=== PATIENT | male | born 1970 | race Caucasian/White ===

== ENCOUNTER → 2017-02-10 | Outpatient (REF) | payer OTHER ==
[2017-02-10 14:02] LABS: ALBUMIN 4.4 GM/DL (3.2-5.2); ALBUMIN/GLOBULIN RATIO 1.57 (1.00-1.93); ALKALINE PHOSPHATASE 116 U/L (45-117); ALT/SGPT 31 U/L (12-78); ANION GAP 7 MEQ/L (8-16); AST/SGOT 29 U/L (7-37); BILIRUBIN,TOTAL 0.5 MG/DL (0.2-1.0); BLOOD UREA NITROGEN 22 MG/DL (7-18); CALCIUM LEVEL 9.3 MG/DL (8.5-10.1); CARBON DIOXIDE LEVEL 29 MEQ/L (21-32); CHLORIDE LEVEL 107 MEQ/L (98-107); CREATININE FOR GFR 1.08 MG/DL (0.70-1.30); GLOMERULAR FILTRATION RATE > 60.0 (>60); GLUCOSE, FASTING 83 MG/DL (70-105); POTASSIUM SERUM 3.8 MEQ/L (3.5-5.1); SODIUM LEVEL 143 MEQ/L (136-145); TOTAL PROTEIN 7.2 GM/DL (6.4-8.2)
[2017-02-10 14:03] LABS: TOTAL 25(OH) VITAMIN D 85.7 NG/ML (30.0-100.0)
[2017-02-15 00:07] LABS: % CD8 Pos Lymph 76.9 % (12.0-35.5); %CD4 Pos Lymphs 9.6 % (30.8-58.5); ABS Eosinophils 0.1 x10E3/uL (0.0-0.4); ABS Lymphs 2.4 x10E3/uL (0.7-3.1); ABS Monocytes 0.8 x10E3/uL (0.1-0.9); ABS Neutophils 4.2 x10E3/uL (1.4-7.0); Abs CD4 Helper 230 /uL (359-1519); Abs CD8 Suppres 1846 /uL (109-897); CD4/CD8 Ratio 0.12 (0.92-3.72); Eosinophils 2 % (Not Estab.); HCT 43.6 % (37.5-51.0); HGB 15.6 g/dL (13.0-17.7); HIV-1 RNA PCR QUANT 2 LC550285 40 copies/mL (.); HIV-1 RNA PCR QUANT 3 LC550285 1.602 (.); Immature Grans 0 % (Not Estab.); Lymphocytes 31 % (Not Estab.); MCH 30.1 pg (26.6-33.0); MCHC 35.8 g/dL (31.5-35.7); MCV 84 fL (79-97); Monocytes 11 % (Not Estab.); Neutrophils 55 % (Not Estab.); Platelets 213 x10E3/uL (150-379); RBC 5.18 x10E6/uL (4.14-5.80); RDW 12.7 % (12.3-15.4); RPR Reactive (Non Reactive); TREPONEMA PALLIDUM ANTIBODIES Positive (Negative); WBC 7.5 x10E3/uL (3.4-10.8)
== END ==
LOC: M SFHCPLAZ 11:04
DX: B20 Human immunodeficiency virus [HIV] disease (principal); A51.49 Other secondary syphilitic conditions; E55.9 Vitamin D deficiency, unspecified

== ENCOUNTER → 2023-02-28 | Outpatient (CLI) | payer MEDICAID, OTHER ==
[2023-02-28 14:43] LABS: ALBUMIN 4.2 G/DL (3.2-5.2); ALKALINE PHOSPHATASE 71 U/L (46-116); ALT/SGPT 48 U/L (7.0-40); AST/SGOT 82 U/L (<34); BILIRUBIN,TOTAL 0.6 MG/DL (0.3-1.2); BLOOD UREA NITROGEN 15 MG/DL (9-23); CALCIUM LEVEL 9.6 MG/DL (8.5-10.1); CARBON DIOXIDE LEVEL 29 MMOL/L (20-31); CHLORIDE LEVEL 106 MMOL/L (98-107); CREATININE FOR GFR 1.05 MG/DL (0.70-1.30); GLOMERULAR FILTRATION RATE > 60.0 (>56); GLUCOSE, FASTING 105 MG/DL (60-100); POTASSIUM SERUM 4.5 MMOL/L (3.5-5.1); SODIUM LEVEL 139 MMOL/L (136-145); TOTAL PROTEIN 7.4 G/DL (5.7-8.2)
[2023-02-28 14:45] LABS: HEPATITIS B SURFACE ANTIBODY POSITIVE (POSITIVE); TOTAL 25(OH) VITAMIN D 22.2 NG/ML (20.0-100.0)
[2023-02-28 15:17] LABS: HEPATITIS C VIRUS ABY INDEX 0.02 INDEX (<0.8)
[2023-03-02 03:11] LABS: % CD8 Pos Lymph 75.5 % (12.0-35.5); %CD4 Pos Lymphs 11.6 % (30.8-58.5); ABS Eosinophils 0.1 x10E3/uL (0.0-0.4); ABS Lymphs 2.3 x10E3/uL (0.7-3.1); ABS Monocytes 0.7 x10E3/uL (0.1-0.9); ABS Neutophils 3.9 x10E3/uL (1.4-7.0); Abs CD4 Helper 267 /uL (359-1519); Abs CD8 Suppres 1737 /uL (109-897); CD4/CD8 Ratio 0.15 (0.92-3.72); Eosinophils 1 % (Not Estab.); HCT 46.7 % (37.5-51.0); HEPATITIS B CORE ANTIBODY IGG Negative (Negative); HGB 16.3 g/dL (13.0-17.7); HIV-1 RNA PCR QUANT 2 LC550285 740 copies/mL (.); HIV-1 RNA PCR QUANT 3 LC550285 2.869 (.); HSV TYPE II IgG SPECIFIC >23.60 index (0.00-0.90); Immature Grans 0 % (Not Estab.); Lymphocytes 33 % (Not Estab.); MCH 29.8 pg (26.6-33.0); MCHC 34.9 g/dL (31.5-35.7); MCV 85 fL (79-97); Monocytes 9 % (Not Estab.); Neutrophils 56 % (Not Estab.); Platelets 263 x10E3/uL (150-450); RBC 5.47 x10E6/uL (4.14-5.80); RDW 11.8 % (11.6-15.4); WBC 7.1 x10E3/uL (3.4-10.8)
== END ==
LOC: M PLALAB 09:00
PROVIDERS: ATTEND Internal Medicine Infectious Disease
DX: B20 Human immunodeficiency virus [HIV] disease (principal); E55.9 Vitamin D deficiency, unspecified; L02.32 Furuncle of buttock; A51.49 Other secondary syphilitic conditions

== ENCOUNTER → 2023-07-25 | Outpatient (CLI) | payer MEDICAID, OTHER ==
[2023-07-25 11:32] LABS: ALBUMIN 3.9 G/DL (3.2-5.2); ALKALINE PHOSPHATASE 48 U/L (46-116); ALT/SGPT 34 U/L (7.0-40); AST/SGOT 41 U/L (<34); BILIRUBIN,TOTAL 0.6 MG/DL (0.3-1.2); BLOOD UREA NITROGEN 11 MG/DL (9-23); CALCIUM LEVEL 9.1 MG/DL (8.5-10.1); CARBON DIOXIDE LEVEL 31 MMOL/L (20-31); CHLORIDE LEVEL 106 MMOL/L (98-107); CREATININE FOR GFR 1.03 MG/DL (0.70-1.30); GLOMERULAR FILTRATION RATE > 60.0 (>56); GLUCOSE, FASTING 86 MG/DL (60-100); POTASSIUM SERUM 4.8 MMOL/L (3.5-5.1); SODIUM LEVEL 139 MMOL/L (136-145); TOTAL PROTEIN 6.9 G/DL (5.7-8.2)
[2023-07-25 12:27] LABS: GC DNA AMPLIFICATION NEGATIVE (NEGATIVE)
[2023-07-25 12:28] LABS: GC DNA AMPLIFICATION NEGATIVE (NEGATIVE)
[2023-07-26 09:16] LABS: RPR NON-REACTIVE (NON-REACTIVE)
[2023-07-26 13:09] LABS: % CD4+ LYMPHS 13.8 % (30.8-58.5); ABSOLUTE CD4 HELPER 235 /uL (359-1519); BASOPHILS 1 % (Not Estab.); BASOPHILS ABSOLUTE 0.1 x10E3/uL (0.0-0.2); EOSINOPHILS 3 % (Not Estab.); EOSINOPHILS ABSOLUTE 0.2 x10E3/uL (0.0-0.4); HCT 49.1 % (37.5-51.0); HGB 15.9 g/dL (13.0-17.7); LYMPHOCYTES 25 % (Not Estab.); LYMPHOCYTES ABSOLUTE 1.7 x10E3/uL (0.7-3.1); MCH 27.7 pg (26.6-33.0); MCHC 32.4 g/dL (31.5-35.7); MCV 86 fL (79-97); MONOCYTES 9 % (Not Estab.); MONOCYTES ABSOLUTE 0.6 x10E3/uL (0.1-0.9); NEUTROPHILS 62 % (Not Estab.); NEUTROPHILS ABSOLUTE 4.3 x10E3/uL (1.4-7.0); PLT 216 x10E3/uL (150-450); RBC 5.73 x10E6/uL (4.14-5.80); RDW 13.3 % (11.6-15.4); WBC 6.9 x10E3/uL (3.4-10.8)
== END ==
LOC: M PLALAB 08:28
PROVIDERS: ATTEND Internal Medicine Infectious Disease
DX: B20 Human immunodeficiency virus [HIV] disease (principal)